=== PATIENT | female | born 1985 | race Caucasian/White ===

== ENCOUNTER 2019-07-02 17:56 | Emergency (ER) | payer OTHER, SELFPAY ==
--- NOTE | ~2019-07-02 | XR_ITS ---
EXAMINATION: XR chest 1V portable EXAM DATE: 07/02/2019 18:44 INDICATION: Shortness of breath, cough and fever. TECHNIQUE: Frontal and lateral projections of the chest obtained and reviewed. There is no prior william dy for comparison. FINDINGS: The lungs are clear. There are no pleural effusions. The cardiomediastinal silhouette is within normal limits. There is no pneumothorax suspected. The bones and soft tissues are unremarkab le. Mild hyperinflation. IMPRESSION: No acute cardiopulmonary findings. Reviewed, dictated and finalized at location A.
[2019-07-02 18:00] VITALS: BP 123/88; PULSE 105; PULSE 106; RESP 22; TEMP 37.2; O2SAT 99
--- NOTE | 2019-07-02 18:20 | ECG_ITS ---
Measurements Intervals [place] Rate: 78 P: 51 ID: [id number] QRS: 69 QRSD: 85 T: 50 QT: 375 QTc: 428 Interpretive Statements SINUS RHYTHM BASELINE ARTIFACT- I, II, AVR, AVF BORDERLINE ECG Electronically Signed On 07-03-2019 7:06:44 CDT by John Lisa D.O.
--- NOTE | 2019-07-02 18:22 | ED.GENADULT ---
HPI - General Adult General Chief complaint: Shortness of Breath/Dyspnea Stated complaint: Cough/Fever History of Present Illness HPI narrative: Carlota is a 33F with a PMH of asthma that presented to the ED with 1 month of flu like illness. on June 27 she started noticing some fullness in her ears. It then progressed to a sore throat and cough. She later progressed to fevers and shortness of breath. since June 19 she has had fevers up to 102?, decreased energy, chills, and reports nausea with nonbilious nonbloody vomiting for the last 2 days. She also believe she is working harder to breathe and is coughing. she has been treated with a Z-Jarad with no relief. She was evaluated at [facility] 2 days ago where she had negative flu, strep other studies. She denies any travel to areas endemic for COVD19 as well as exposure to persons infected with COVID19 but does admit cough, SOB and fevers. Related Data Home Medications Medication Instructions Recorded Confirmed albuterol sulfate [ProAir HFA] 2 puff INHALATION QID PRN 07/02/19 07/02/19 Allergies Allergy/AdvReac Type Severity Reaction Status Date / Time No Known Allergies Allergy Verified 07/02/19 18:23 Review of Systems Constitutional: Constitutional: Reports as per HPI Eyes: Eyes: Reports no additional eye complaints ENT: Reports as per HPI Cardiovascular: Cardiovascular: Reports as per HPI Respiratory: Respiratory: Reports as per HPI Gastrointestinal: Gastrointestinal: Reports as per HPI Musculoskeletal: Musculoskeletal: Reports no additional musculoskeletal complaints and Reports as per HPI Neurologic: Reports system reviewed and no additional complaints, except as documented Psychiatric: Psychiatric: Reports no additional psychiatric complaints Endocrine: Endocrine: Reports no additional endocrine complaints Hematologic/Lymphatic: Hematologic/Lymphatic: Reports no additional hematologic/lymphatic complaints Allergic/Immunologic: Allergic/Immunologic: Reports no additional allergic/immunologic complaints [facility] Social History Social History Gender identity (if verbalized by the patient): Female Exam Const: General: alert Orientation/consciousness: patient oriented x3 Limitations: No altered mental status Other: Mild distress HENMT: Other: Normocephalic, atraumatic, slighly dry oropharynx, no lymphadenopathy Eyes: Conjunctivae: conjunctivae normal Pupils: Equal, round and reactive pupils present Neck: Neck: normal visual inspection and no lymphadenopathy Chest: Chest palpation & inspection: normal inspection of the chest Resp: Effort & Inspection: normal respiratory effort, not labored, no retractions and no use of accessory muscles Auscultation: clear to auscultation bilaterally Other: tachypnea after coughing, but otherwise had normal respiratory rate Cardio: Rhythm: regular rhythm Heart sounds: no murmurs Other: slight tachycardia GI: Inspection: non-distended GI Palp: Yes Soft to palpation and No Tenderness to palpation present (GI) Skin: General skin exam: normal color Rashes: no rashes Neuro: General: patient oriented x3 and moves all extremities Other: no focal deficits Extrem: General: normal to inspection Psych: Mental Status: mental status grossly normal Course Course Emergency Course: Carlota was seen and evaluated. Ordered CXR, EKG and labs as below as well as 1L of NS. She was placed in the negative pressure room given the concerns of COVID. labs showed no leukocytosis, no anemia, normal chemistries, and negative Flu swabs. CXR showed no acute cardiopulmonary findings. After administration of fluids her HR came down to the 80's and her RR came down to the upper teens and lower 20's. As she had no signs of bacterial infection and her vitals were wnl so she was discharged with an Rx for Zofran. Vital Signs Vital signs: Vital
[2019-07-02 18:30] VITALS: BP 121/71; PULSE 91; RESP 20; O2SAT 98
[2019-07-02] MEDS: SODIUM CHLORIDE 0.9% IV 1,000 ML 999 ML IV CONT (18:40)
[2019-07-02 18:48] LABS: Basophils Absolute Auto 0.07 K/mm3 (0.00-0.10); Basophils Percent Auto 0.8 % (0.0-1.0); Eosinophils Absolute Auto 0.24 K/mm3 (0.02-0.50); Eosinophils Percent Auto 2.9 % (1.0-6.0); Hematocrit 39.9 % (35.0-49.0); Hemoglobin 13.5 g/dL (12.0-15.0); Immature Granulocyte Absolute 0.02 K/mm3 (0.00-0.00); Immature Granulocyte Percent A 0.2 % (0.0-0.0); Lymphocytes Absolute Auto 2.27 K/mm3 (1.10-4.50); Mean Corpuscular HGB Conc 33.8 g/dL (32.0-36.0); Mean Corpuscular Hemoglobin 28.8 pg (27.0-31.0); Mean Corpuscular Volume 85.3 fL (78.0-102.0); Mean Platelet Volume 10.4 fl (9.2-11.8); Monocytes Absolute Auto 0.65 K/mm3 (0.10-0.90); Monocytes Percent Auto 7.7 % (2.0-11.0); Neutrophils Absolute Auto 5.2 K/mm3 (1.7-7.2); Neutrophils Percent Auto 61.4 % (50.0-70.0); Platelet Count Result 255 K/mm3 (150-420); Red Blood Count 4.68 M/mm3 (4.20-5.40); Red Cell Distribution Width 11.5 % (11.6-14.4); White Blood Count 8.4 K/mm3 (4.8-10.8)
--- NOTE | 2019-07-02 19:00 | PC.NURSE ---
Pt states she resides with her boyfriend and 2 children. States the boyfriend was dx with influenza 2 weeks ago but continues to experience fever.
[2019-07-02 19:03] LABS: Alanine Aminotransferase 40 U/L (14-59); Albumin Level 4.1 g/dL (3.4-5.0); Alkaline Phosphatase 54 U/L (46-116); Anion Gap 14.9 mmol/L (7-16); Aspartate Amino Transferase 24 U/L (15-37); Bilirubin,Total 0.2 mg/dL (0.00-1.00); Blood Urea Nitrogen 11 mg/dL (7-18); Carbon Dioxide 25 mmol/L (21-32); Chloride 104 mmol/L (98-108); Estimated CRCL calculation 68 ml/min; Estimated Glomerular Filt Rate > 60; Glucose 122 mg/dL (70-99); Osmolality Calculated 290 mOsm/kg (285-295); Potassium 3.9 mmol/L (3.5-5.1); Sodium 140 mmol/L (136-145); Total Protein 7.3 g/dL (6.4-8.2)
[2019-07-02 19:06] LABS: BNP < 5.0 pg/mL (0-100); Influenza Control Valid (Valid)
[2019-07-02 19:07] LABS: Lactic Acid 1.8 mmol/L (0.4-2.0)
[2019-07-02 19:20] LABS: Troponin I < 0.02 ng/mL (0.00-0.056)
[2019-07-02 19:25] VITALS: BP 155/92; PULSE 85; RESP 20; O2SAT 100
--- NOTE | 2019-07-02 19:25 | PC.NURSE ---
Dr Moss at bedside.
[2019-07-02 19:50] VITALS: BP 130/81; PULSE 91; RESP 20; O2SAT 99
== END 2019-07-02 19:50 | disposition home or self-care (01) ==
PROVIDERS: Emergency Provider Family Medicine
DX: B34.8 Other viral infections of unspecified site (principal)
CPT/HCPCS: 36415; 71045; 80053; 83605; 83880; 84484; 85025; 87804; 93005; 96360; 99284; J7030

== ENCOUNTER 2021-11-21 22:34 | Emergency (ER) | payer OTHER, SELFPAY ==
[2021-11-21 22:55] VITALS: BP 120/84; PULSE 89; RESP 18; TEMP 36.6; O2SAT 96
--- NOTE | 2021-11-21 22:59 | ED.ANIMALBIT ---
HPI - Animal Bite General Chief Complaint: Animal Bite Stated Complaint: ambulance Time Seen by Provider: 11/21/21 22:59 Source: patient and RN notes reviewed Mode of arrival: ambulatory Limitations: no limitations History of Present Illness complaint: animal bite Onset (ago): hour(s) (1) Animal: dog Description of animal: household pet Mechanism: bite Location - Extremities: Right: lower leg Pain description: dull and constant Context: playing with animal Associated symptoms: none Treatments prior to arrival: wound dressing(s) Related Data Patient tetanus UTD: No Home Medications Medication Instructions Recorded Confirmed albuterol sulfate 90 mcg/actuation 2 puff inhalation QID PRN 07/02/19 11/21/21 aerosol inhaler (ProAir HFA) Shortness Of Breath Allergies Allergy/AdvReac Type Severity Reaction Status Date / Time No Known Allergies Allergy Verified 07/02/19 18:23 Review of Systems Review of Systems: All systems reviewed & are unremarkable except as noted in HPI and below PMFSH Past Medical History Medical History (Updated 11/21/21 @ 23:56 by Bobby Singh MD) No active medical problems Surgical History Surgical History (Updated 11/21/21 @ 23:49 by Bobby Singh MD) History of section History of total abdominal hysterectomy Social History Social History Gender identity (if verbalized by the patient): Female Exam Const: General: healthy appearing, no acute distress and alert Nutritional Appearance: well nourished Orientation/consciousness: patient oriented x3 Limitations: no limitations HENMT: Head: normal to inspection Ears: external ears normal Eyes: Conjunctivae: conjunctivae normal Pupils: Equal, round and reactive pupils present EOM: EOMs intact bilaterally Neck: Neck: normal visual inspection Resp: Effort & Inspection: normal respiratory effort Auscultation: clear to auscultation bilaterally Cardio: Rate: regular rate Rhythm: regular rhythm GI: GI Palp: Yes Soft to palpation and No Tenderness to palpation present (GI) Auscultation: normal bowel sounds Back/Spine/Pelvis: Cervical Spine: cervical ROM normal Thoracic/Lumbar Spine: thoraco-lumbar ROM normal Skin: General skin exam: normal color Rashes: no rashes Wounds: wounds noted flap right anterior lower leg size (4 cm), drainage bloody and margins poorly approximated and well defined, avulsion right anterior lower leg size (1.8 cm), drainage bloody and margins poorly approximated and well defined, laceration right lower leg size (2 cm) Neuro: General: patient oriented x3, moves all extremities, no focal motor deficits and CN's II-XI intact bilaterally Speech: normal speech Gait exam (Neuro): Normal gait present Extrem: General: normal to inspection and no clubbing, cyanosis or edema Psych: Mental Status: mental status grossly normal Affect: normal affect Attitude: cooperative Course Vital Signs Vital signs: Vital Signs Temperature 36.6 C 11/21/21 22:55 Pulse Rate 89 11/21/21 22:55 Respiratory Rate 18 11/21/21 22:55 Blood Pressure 120/84 11/21/21 22:55 Pulse Oximetry 96 11/21/21 22:55 Oxygen Delivery Room Air 11/21/21 22:55 Temperature 36.6 C 11/21/21 22:55 Pulse Rate 89 11/21/21 22:55 Respiratory Rate 18 11/21/21 22:55 Blood Pressure 120/84 11/21/21 22:55 Pulse Oximetry 96 11/21/21 22:55 Oxygen Delivery Room Air 11/21/21 22:55 Procedures Laceration Laceration 1: Date: 11/21/21 Site: lower extremity Side (If applicable): right Size (cm): 4 Description: flap and clean Depth: simple, single layer and involves muscle layer Local Anesthetic: lidocaine 1% and with epi Amount of anesthesia used (mL): 6 Pre-repair: wound explored, irrigated and minor debridement ====== Skin Level ====== Skin layer closed with: nylon
[2021-11-21] MEDS: LIDOCAINE HCL 1% LOCAL INJ 10 ML VIAL (23:49)
[2021-11-21] MEDS: TETANUS,DIPHTHERIA,AC PERTUSSIS ADULT 0.5 ML (ADACEL) IM (23:50)
[2021-11-22] MEDS: NEOMYCIN/POLYMYXIN/BACITRACIN OINTMENT PACKET 2 PACKET TOPICAL (00:04)
[2021-11-22] MEDS: AMOXICILLIN/CLAVULANATE K 875-125 MG TAB 1 TABLET PO (00:04)
[2021-11-22 00:09] VITALS: BP 122/74; PULSE 79; RESP 16; TEMP 36.6; O2SAT 96
== END 2021-11-22 00:10 | disposition home or self-care (01) ==
PROVIDERS: Emergency Provider Emergency Medicine
DX: S81.851A Open bite, right lower leg, initial encounter (principal); S81.811A Laceration without foreign body, right lower leg, initial encounter; W64.XXXA Exposure to other animate mechanical forces, initial encounter
CPT/HCPCS: 12002; 12032; 90471; 90715; 99283; A9270